=== PATIENT | female | born 1995 | race Two or more races ===

== ENCOUNTER → 2023-10-12 | Outpatient (CLI) | payer OTHER ==
[2023-10-12 13:13] LABS: HEMATOCRIT 35.4 % (36.0-47.0); HEMOGLOBIN 12.1 g/dl (12.0-15.5); MEAN CORPUSCULAR HEMOGLOBIN 31.8 pg (27.0-33.0); MEAN CORPUSCULAR HGB CONC 34.2 g/dl (32.0-36.5); MEAN CORPUSCULAR VOLUME 92.9 fl (80.0-96.0); PLATELET COUNT, AUTOMATED 294 10^3/uL (150-450); RED BLOOD COUNT 3.81 10^6/uL (4.00-5.40); WHITE BLOOD COUNT 7.8 10^3/uL (4.0-10.0)
[2023-10-12 14:58] LABS: GC DNA AMPLIFICATION NEGATIVE (NEGATIVE)
[2023-10-12 18:17] LABS: HIV 1&2 SCREEN NEGATIVE (NEGATIVE)
[2023-10-12 18:26] LABS: HEPATITIS C VIRUS ABY INDEX < 0.02 INDEX (<0.8)
== END ==
LOC: M PLALAB 10:51
PROVIDERS: ATTEND Advanced Practice Midwife
DX: Z34.81 Encounter for supervision of other normal pregnancy, first trimester (principal)

== ENCOUNTER → 2023-12-12 | Outpatient (CLI) | payer OTHER | LOC: M RAD 14:38 | PROVIDERS: ATTEND Advanced Practice Midwife | DX: Z34.82 Encounter for supervision of other normal pregnancy, second trimester (principal); Z3A.21 21 weeks gestation of pregnancy ==

== ENCOUNTER → 2024-02-20 | Outpatient (CLI) | payer OTHER ==
[2024-02-20 16:10] LABS: HEMATOCRIT 30.9 % (36.0-47.0); HEMOGLOBIN 9.9 g/dl (12.0-15.5); MEAN CORPUSCULAR HEMOGLOBIN 29.6 pg (27.0-33.0); MEAN CORPUSCULAR VOLUME 92.2 fl (80.0-96.0); PLATELET COUNT, AUTOMATED 244 10^3/uL (150-450); RED BLOOD COUNT 3.35 10^6/uL (4.00-5.40); WHITE BLOOD COUNT 10.5 10^3/uL (4.0-10.0)
[2024-02-20 16:36] LABS: GLUCOSE CHALLENGE TEST 1 HOUR 96 MG/DL (LESS THAN 140)
[2024-02-20 17:11] LABS: HIV 1&2 SCREEN NEGATIVE (NEGATIVE)
[2024-02-20 17:19] LABS: HEPATITIS C VIRUS ABY INDEX 0.02 INDEX (<0.8)
[2024-02-20 17:25] LABS: GC DNA AMPLIFICATION NEGATIVE (NEGATIVE)
== END ==
LOC: M PLALAB 11:42
PROVIDERS: ATTEND Obstetrics & Gynecology
DX: Z36.89 Encounter for other specified antenatal screening (principal); Z3A.20 20 weeks gestation of pregnancy

== ENCOUNTER → 2024-03-26 | Outpatient (CLI) | payer OTHER ==
[2024-03-26 13:53] LABS: HEMATOCRIT 32.7 % (36.0-47.0); HEMOGLOBIN 10.4 g/dl (12.0-15.5); MEAN CORPUSCULAR HEMOGLOBIN 29.1 pg (27.0-33.0); MEAN CORPUSCULAR HGB CONC 31.8 g/dl (32.0-36.5); MEAN CORPUSCULAR VOLUME 91.6 fl (80.0-96.0); PLATELET COUNT, AUTOMATED 228 10^3/uL (150-450); RED BLOOD COUNT 3.57 10^6/uL (4.00-5.40); WHITE BLOOD COUNT 9.5 10^3/uL (4.0-10.0)
== END ==
LOC: M PLALAB 11:13
PROVIDERS: ATTEND Nurse Practitioner Family
DX: O99.013 Anemia complicating pregnancy, third trimester (principal)

== ENCOUNTER 2024-04-05 02:46 | Inpatient (IN) | payer OTHER ==
[2024-04-05] VITALS (24 sets, daily range): BP systolic 90–122; BP diastolic 51–80; O2SAT 99
[~2024-04-05] VITALS: Ht 162.6 cm; Wt 62.0 kg
[2024-04-05] MEDS ORDERED: PRENTAB9 PO (03:01)
[2024-04-05] MEDS ORDERED: HOME MED LIST COMPLETE! XX SCH (03:35)
[2024-04-05] MEDS: BUTORPHANOL 2 MG/ML 1ML VIAL IV ONE (05:14)
[2024-04-05] MEDS: PROMETHAZINE 25MG/ML 1ML VIAL IV ONE (05:15)
[2024-04-05 05:30] LABS: HEMATOCRIT 35.3 % (36.0-47.0); HEMOGLOBIN 11.4 g/dl (12.0-15.5); MEAN CORPUSCULAR HEMOGLOBIN 29.2 pg (27.0-33.0); MEAN CORPUSCULAR HGB CONC 32.3 g/dl (32.0-36.5); MEAN CORPUSCULAR VOLUME 90.3 fl (80.0-96.0); PLATELET COUNT, AUTOMATED 193 10^3/uL (150-450); RED BLOOD COUNT 3.91 10^6/uL (4.00-5.40); WHITE BLOOD COUNT 10.8 10^3/uL (4.0-10.0)
[2024-04-05 06:29] LABS: HEPATITIS C VIRUS ABY INDEX < 0.02 INDEX (<0.8)
[2024-04-05] MEDS ORDERED: TRANEXAMIC ACID INJection 1,000 MG in NS 100 ML IV PRN (10:05)
[2024-04-05] MEDS ORDERED: OXYTOCIN INJ 10UNITS/ML 1ML VIAL IM PRN (10:05)
[2024-04-05] MEDS ORDERED: CARBOPROST TROMETHAMINE 250 MCG/ML AMP IM PRN (10:05)
[2024-04-05] MEDS ORDERED: LIDOCAINE 1% MDV 20ML VIAL INFIL PRN (10:05)
[2024-04-05] MEDS ORDERED: METHYLERGONOVINE MALEATE 0.2MG/ML 1ML VIAL IM PRN (10:05)
[2024-04-05] MEDS ORDERED: OXYTOCIN DRIP 30 UNITS in IV 1 EA IV PRN (10:05)
[2024-04-05] MEDS ORDERED: OXYTOCIN INJ 10UNITS/ML 1ML VIAL IV PRN (10:05)
[2024-04-05] MEDS: LR 1,000 ML IV ONE (17:39)
[2024-04-05] MEDS ORDERED: ONDANSETRON 4MG 2ML VIAL IV PRN ×2 (17:45→22:40)
[2024-04-05] MEDS ORDERED: NALOXONE INJ 0.4MG/1ML VIAL IV PRN (17:45)
[2024-04-05] MEDS ORDERED: EPIDURAL/PCA KEYS XX PRN (17:45)
[2024-04-05] MEDS ORDERED: diphenhydrAMINE 50MG/ML VIAL IV PRN (17:45)
[2024-04-05] MEDS ORDERED: ePHEDrine SULFATE 25 MG/5 ML(5MG/ML) SYRINGE IVP PRN (17:45)
[2024-04-05] MEDS ORDERED: LR 500 ML IV PRN (17:45)
[2024-04-05] MEDS: FENTANYL/ROPIVACAINE/NACL BAG 100 ML EPIDURAL SCH (18:29)
[2024-04-05] MEDS ORDERED: LR 1,000 ML IV SCH (18:55)
[2024-04-05] MEDS: OXYTOCIN DRIP 30 UNITS in IV 1 EA IV SCH ×2 (19:34→23:34)
[2024-04-05] MEDS ORDERED: METHYLERGONOVINE MALEATE 0.2 MG TAB PO PRN (22:40)
[2024-04-05] MEDS ORDERED: RHOGAM 300MCG (1500IU) INJ IM SCH (22:40)
[2024-04-05] MEDS ORDERED: DOCUSATE SODIUM 100MG CAPSULE PO PRN (22:40)
[2024-04-05] MEDS ORDERED: CALCIUM CARBONATE 500 MG CHEW U/D PO PRN (22:40)
[2024-04-05] MEDS ORDERED: DIBUCAINE 1% OINTMENT 30GM TOP PRN (22:40)
[2024-04-05] MEDS ORDERED: IBUPROFEN 600MG TAB PO PRN (22:40)
[2024-04-05] MEDS ORDERED: ANUSOL HC CREAM 30GM TOP PRN (22:40)
[2024-04-05] MEDS: ACETAMINOPHEN 325 MG TAB PO PRN (23:33)
[2024-04-06 01:14] VITALS: BP 101/65; O2SAT 97
[2024-04-06 06:16] VITALS: BP 108/74; O2SAT 96
[2024-04-06] MEDS: PRENATAL VITAMINS CHEWABLE TABLET PO SCH (09:34)
[2024-04-06] MEDS: ACETAMINOPHEN 500 MG TAB PO PRN (12:27)
[2024-04-06] MEDS: IBUPROFEN 800 MG TAB PO PRN (16:11)
[2024-04-06 18:00] VITALS: BP 121/73; O2SAT 97
[2024-04-07 05:55] VITALS: BP 117/74; O2SAT 97
[2024-04-07] MEDS: MEASLES,MUMPS,RUBELLA VACCINE INJ (MMR-II) SC.IMMUN ONE (09:00)
== END 2024-04-07 13:30 | disposition home or self-care (01) | DRG 807 ==
LOC: M LDO 02:46 → M LDI 10:09 → M OBS 04-06 04:25
PROVIDERS: ADMIT Obstetrics & Gynecology; ATTEND Obstetrics & Gynecology
PROC: 10E0XZZ Delivery of Products of Conception, External Approach (ICD-10-PCS; principal; 2024-04-05)
DX: O80 Encounter for full-term uncomplicated delivery (principal); Z37.0 Single live birth; Z3A.37 37 weeks gestation of pregnancy; Z91.018 Allergy to other foods

== ENCOUNTER → 2024-11-26 | Outpatient (REF) | payer OTHER ==
[~2024-11-26] MED LIST: PRENTAB9 PO
== END ==
LOC: M PLALAB 14:52
PROVIDERS: ATTEND Advanced Practice Midwife
DX: Z53.9 Procedure and treatment not carried out, unspecified reason (principal)

== ENCOUNTER → 2024-11-26 | Outpatient (CLI) | payer OTHER | LOC: M RAD 15:55 | PROVIDERS: ATTEND Advanced Practice Midwife | DX: O20.9 Hemorrhage in early pregnancy, unspecified (principal); Z3A.09 9 weeks gestation of pregnancy ==

== ENCOUNTER 2024-11-29 10:47 | Day surgery (SDC) | payer OTHER ==
[~2024-11-29] VITALS: Ht 162.6 cm; Wt 60.8 kg
[2024-11-29] MEDS ORDERED: MIDAZOLAM INJ 2 MG/2 ML VIAL As Ordered ONE (11:07)
[2024-11-29] MEDS ORDERED: LR 1,000 ML IV SCH (11:10)
[2024-11-29 11:46] LABS: PLATELET COUNT, AUTOMATED 334 10^3/uL (150-450)
[2024-11-29] MEDS ORDERED: dexAMETHasone 4 MG/ML 1 ML VIAL As Ordered ONE (11:49)
[2024-11-29] MEDS: DOXYCYCLINE HYCLATE 100 MG in DEXTROSE 5% (D5W) MINI-BAG PLU 100 ML IV SCH (12:28)
[2024-11-29] MEDS ORDERED: ONDANSETRON 4MG 2ML VIAL As Ordered ONE (12:39)
[2024-11-29] MEDS ORDERED: ACETAMINOPHEN 1000MG/100ML IV BAG As Ordered ONE (12:40)
[2024-11-29] MEDS ORDERED: KETOROLAC 30 MG/ML 1 ML VIAL As Ordered ONE (12:40)
[2024-11-29] MEDS ORDERED: SILVER NITRATE APPLICATOR (1 = QTY 10) As Ordered ONE (12:54)
[2024-11-29] MEDS ORDERED: ONDANSETRON 4MG 2ML VIAL IV PRN (13:15)
[2024-11-29] MEDS: MEPERIDINE 25 MG/ML 1 ML VIAL IV PRN (13:36)
[2024-11-29 14:45] VITALS: BP 109/64; TEMP 98; O2SAT 98
== END 2024-11-29 14:48 | disposition home or self-care (01) ==
LOC: M SDC 10:47
PROVIDERS: ATTEND Obstetrics & Gynecology
DX: O02.1 Missed abortion (principal); Z91.018 Allergy to other foods
CPT/HCPCS: 36415; 59820; 85027; 86850; 86900; 86901; 88305; J0131; J1100; J1271; J1885; J2175; J2250; J2405; J3010

== ENCOUNTER → 2025-04-25 | Outpatient (CLI) | payer OTHER | LOC: M PLALAB 13:00 | PROVIDERS: ATTEND Advanced Practice Midwife | DX: O20.0 Threatened abortion (principal); Z3A.00 Weeks of gestation of pregnancy not specified ==

== ENCOUNTER → 2025-04-27 | Outpatient (CLI) | payer OTHER | LOC: M LAB 11:40 | PROVIDERS: ATTEND Advanced Practice Midwife | DX: O20.0 Threatened abortion (principal) ==